=== PATIENT | female | born 1995 | race Caucasian/White ===

== ENCOUNTER 2019-09-11 15:52 | Inpatient (IN) | payer MEDICAID, OTHER ==
[~2019-09-11] VITALS: Ht 172.7 cm; Wt 74.1 kg
[2019-09-11 17:33] LABS: BASOPHILS % (AUTO) 1.8 % (0.0-2.0); EOSINOPHILS % (AUTO) 4.2 % (1.0-6.0); HEMATOCRIT 40.5 % (36-46); HEMOGLOBIN 13.5 g/dL (12.0-16.0); LYMPHOCYTES # (AUTO) 1.6 K/uL (1.0-4.8); MEAN CORPUSCULAR HEMOGLOBIN 28.6 pg (26.0-34.0); MEAN CORPUSCULAR HGB CONC 33.4 G/dL (31.0-37.0); MEAN CORPUSCULAR VOLUME 86 fL (80-100); MONOCYTES # (AUTO) 0.4 K/uL (0.1-1.0); MONOCYTES % (AUTO) 9.3 % (2.0-9.0); NEUTROPHILS # (AUTO) 1.7 K/uL (1.8-7.7); NEUTROPHILS % (AUTO) 43.7 % (40.0-70.0); PLATELET COUNT (AUTO) 262 K/uL (150-450); RED BLOOD CELL COUNT(AUTO) 4.72 MIL/uL (4.00-5.20)
[2019-09-11 17:49] LABS: ANION GAP 7 mmol/L (8-16); CALCIUM, TOTAL 8.9 mg/dL (8.8-10.5); CARBON DIOXIDE 29 mmol/L (22-29); CHLORIDE 105 mmol/L (98-107); CREATININE 1.12 mg/dL (0.60-1.30); GLOMERULAR FILTR. RATE CALC 60 mL/min (>60); GLUCOSE,RANDOM 96 mg/dL (70-110); POTASSIUM 4.2 mmol/L (3.5-5.1); SODIUM SERUM 141 mmol/L (136-145); UREA NITROGEN, BLOOD 15 mg/dL (7-18)
[2019-09-11 17:55] LABS: ALANINE AMINOTRANSFERASE 15 U/L (12-78); ALBUMIN 4.1 g/dL (3.4-5.0); ALKALINE PHOSPHATASE 86 U/L (46-116); ASPARTATE AMINOTRANSFERASE 11 U/L (15-37); BILIRUBIN,TOTAL 0.4 mg/dL (0.1-1.0); TOTAL PROTEIN, SERUM 7.7 g/dL (6.4-8.2)
[2019-09-11] MEDS ORDERED: CYANOCOBALAMIN 1,000 MCG/ML VIAL IM ONE (18:30)
[2019-09-11] MEDS ORDERED: MAG HYDROX/AL HYDROX/SIMETH ES 30 ML SUSPENSION UDCUP PO PRN (18:30)
[2019-09-11] MEDS ORDERED: LOPERAMIDE HCL 2 MG CAPSULE PO PRN (18:30)
[2019-09-11] MEDS ORDERED: LORazepam 2 MG TABLET PO PRN (18:30)
[2019-09-11] MEDS ORDERED: HydrOXYzine PAMOATE 50 MG CAPSULE PO PRN (18:30)
[2019-09-11] MEDS ORDERED: MAGNESIUM HYDROXIDE SUSPENSION 30 ML UDCUP PO PRN (18:30)
[2019-09-11] MEDS ORDERED: GuaiFENesin/D-METHORPHAN [SUGAR-FREE] 200-20MG/10 ML SYRUP UDCUP PO PRN (18:30)
[2019-09-11] MEDS ORDERED: TUBERCULIN, PURIFIED PROTEIN DERIVATIVE 5 TU/0.1 ML SYRINGE ID ONE (18:30)
[2019-09-11] MEDS ORDERED: ACETAMINOPHEN 325 MG TABLET PO PRN (18:30)
[2019-09-11] MEDS ORDERED: PROMETHAZINE HCL 25 MG TABLET PO PRN ×2 (18:30)
[2019-09-11] MEDS ORDERED: ZOLPIDEM TARTRATE 10 MG TABLET PO PRN (18:30)
[2019-09-11] MEDS ORDERED: QUEtiapine FUMARATE 100 MG TABLET PO PRN (18:30)
[2019-09-11] MEDS ORDERED: LORazepam 1 MG TABLET PO ONE (19:00)
[2019-09-11 19:07] LABS: HCG,QUANTITATIVE < 1 mIU/mL (0-6)
[2019-09-11] MEDS: THIAMINE HCL 100 MG TABLET PO SCH (21:17)
[2019-09-11] MEDS: OLANZapine 5 MG RAPDIS TABLET PO SCH (21:17)
[2019-09-11 22:07] LABS: AMPHET/METH SCREEN,URINE NEGATIVE (NEGATIVE); BARBITURATE SCREEN, URINE NEGATIVE (NEGATIVE); BENZODIAZEPINES SCREEN,URINE NEGATIVE (NEGATIVE); CANNABINOID SCREEN,URINE NEGATIVE (NEGATIVE); COCAINE SCREEN,URINE POSITIVE (NEGATIVE); METHADONE SCREEN, URINE NEGATIVE (NEGATIVE); OPIATE SCREEN,URINE NEGATIVE (NEGATIVE)
[2019-09-11 22:12] LABS: PHENCYCLIDINE SCREEN,URINE NEGATIVE (NEGATIVE)
[2019-09-12] VITALS (10 sets, daily range): BP systolic 100–130; BP diastolic 57–78
[2019-09-12] MEDS ORDERED: LORazepam 2 MG TABLET PO PRN (07:00)
[2019-09-12 07:32] LABS: ALANINE AMINOTRANSFERASE 19 U/L (12-78); ALBUMIN 3.5 g/dL (3.4-5.0); ALKALINE PHOSPHATASE 68 U/L (46-116); ANION GAP 10 mmol/L (8-16); ASPARTATE AMINOTRANSFERASE 11 U/L (15-37); BILIRUBIN,TOTAL 0.6 mg/dL (0.1-1.0); CALCIUM, TOTAL 8.6 mg/dL (8.8-10.5); CARBON DIOXIDE 25 mmol/L (22-29); CHLORIDE 105 mmol/L (98-107); CHOL/HDL RATIO 2.6 (3.9-5.7); CHOLESTEROL 123 mg/dL (131-200); FREE T4 (FREE THYROXINE) 0.94 ng/dL (0.76-1.46); GLOMERULAR FILTR. RATE CALC > 60 mL/min (>60); GLUCOSE,RANDOM 99 mg/dL (70-110); HDL CHOLESTEROL 48 mg/dL (40-60); LDL CHOL (CALC.) 60 mg/dL (0-130); POTASSIUM 3.6 mmol/L (3.5-5.1); SODIUM SERUM 140 mmol/L (136-145); THYROID STIMULATING HORMONE 3.19 uIU/mL (0.36-3.74); TOTAL PROTEIN, SERUM 6.8 g/dL (6.4-8.2); TRIGLYCERIDES 75 mg/dL (15-150); UREA NITROGEN, BLOOD 16 mg/dL (7-18)
[2019-09-12 08:29] LABS: BASOPHILS % (AUTO) 1.4 % (0.0-2.0); EOSINOPHILS % (AUTO) 6.4 % (1.0-6.0); HEMATOCRIT 38.5 % (36-46); HEMOGLOBIN 12.7 g/dL (12.0-16.0); LYMPHOCYTES # (AUTO) 1.8 K/uL (1.0-4.8); MEAN CORPUSCULAR HEMOGLOBIN 28.3 pg (26.0-34.0); MEAN CORPUSCULAR HGB CONC 32.9 G/dL (31.0-37.0); MEAN CORPUSCULAR VOLUME 86 fL (80-100); MONOCYTES # (AUTO) 0.3 K/uL (0.1-1.0); MONOCYTES % (AUTO) 11.5 % (2.0-9.0); NEUTROPHILS # (AUTO) 0.6 K/uL (1.8-7.7); NEUTROPHILS % (AUTO) 20.7 % (40.0-70.0); PLATELET COUNT (AUTO) 200 K/uL (150-450); RED BLOOD CELL COUNT(AUTO) 4.47 MIL/uL (4.00-5.20); RED CELL DISTRIBUTION WIDTH 16.3 % (11.5-14.5)
[2019-09-12] MEDS: FLUoxetine HCL 20 MG CAPSULE PO SCH (08:36)
[2019-09-12] MEDS: NALTREXONE HCL 50 MG TABLET PO SCH (08:37)
[2019-09-12] MEDS: THIAMINE HCL 100 MG TABLET PO SCH ×2 (08:37→16:29)
[2019-09-12] MEDS: MULTIVITAMINS WITH MINERALS, THERAPEUTIC TABLET PO SCH (08:37)
[2019-09-12] MEDS: LORazepam 2 MG TABLET PO SCH ×4 (08:37→20:20)
[2019-09-12] MEDS: FOLIC ACID 1 MG TABLET PO SCH (08:37)
[2019-09-12] MEDS ORDERED: OLANZapine 5 MG RAPDIS TABLET PO PRN (18:30)
[2019-09-12] MEDS: OLANZapine 5 MG RAPDIS TABLET PO SCH (20:20)
[2019-09-13 01:45] VITALS: BP 106/59
[2019-09-13] MEDS ORDERED: INFLUENZA VIRUS VACCINE QVS 2019-20 (3YR+)/PF 60 MCG/0.5 ML SYRINGE IM ONE (05:15)
[2019-09-13 05:45] VITALS: BP 99/56
[2019-09-13 08:42] VITALS: BP 122/68
[2019-09-13 08:43] VITALS: BP 122/68
[2019-09-13] MEDS: FLUoxetine HCL 20 MG CAPSULE PO SCH (10:05)
[2019-09-13] MEDS: THIAMINE HCL 100 MG TABLET PO SCH ×2 (10:05→16:29)
[2019-09-13] MEDS: MULTIVITAMINS WITH MINERALS, THERAPEUTIC TABLET PO SCH (10:05)
[2019-09-13] MEDS: LORazepam 2 MG TABLET PO SCH ×4 (10:06→20:39)
[2019-09-13] MEDS: FOLIC ACID 1 MG TABLET PO SCH (10:06)
[2019-09-13] MEDS: NALTREXONE HCL 50 MG TABLET PO SCH (10:06)
[2019-09-13 16:00] VITALS: BP 108/64
[2019-09-13] MEDS ORDERED: OLANZapine 10 MG RAPDIS TABLET PO SCH (21:00)
[2019-09-14 06:10] VITALS: BP 97/62
[2019-09-14 06:15] VITALS: BP 97/62
[2019-09-14] MEDS ORDERED: LORazepam 1 MG TABLET PO PRN (07:00)
[2019-09-14 08:00] VITALS: BP 90/64
[2019-09-14] MEDS: THIAMINE HCL 100 MG TABLET PO SCH ×2 (09:35→16:35)
[2019-09-14] MEDS: FOLIC ACID 1 MG TABLET PO SCH (09:35)
[2019-09-14] MEDS: MULTIVITAMINS WITH MINERALS, THERAPEUTIC TABLET PO SCH (09:35)
[2019-09-14] MEDS: NALTREXONE HCL 50 MG TABLET PO SCH (09:35)
[2019-09-14] MEDS: FLUoxetine HCL 20 MG CAPSULE PO SCH (09:35)
[2019-09-14] MEDS: LORazepam 1 MG TABLET PO SCH ×3 (09:39→16:35)
[2019-09-14] MEDS ORDERED: FLUO-191 PO (15:38)
[2019-09-14] MEDS ORDERED: OLAN10TA22 PO (15:38)
[2019-09-14] MEDS ORDERED: NALT50TA PO (15:38)
[2019-09-14] MEDS: NICOTINE 21 MG/24 HOUR PATCH TD SCH (17:06)
[2019-09-14 17:17] VITALS: BP 121/64
[2019-09-14 17:18] VITALS: BP 121/64
[2019-09-14] MEDS ORDERED: LOPERAMIDE HCL 2 MG CAPSULE PO PRN (18:30)
[2019-09-15 06:23] VITALS: BP 102/57
[2019-09-15] MEDS ORDERED: LORazepam 1 MG TABLET PO PRN (07:00)
[2019-09-15 08:24] VITALS: BP 106/73
[2019-09-15] MEDS: FOLIC ACID 1 MG TABLET PO SCH (09:38)
[2019-09-15] MEDS: FLUoxetine HCL 20 MG CAPSULE PO SCH (09:38)
[2019-09-15] MEDS: MULTIVITAMINS WITH MINERALS, THERAPEUTIC TABLET PO SCH (09:38)
[2019-09-15] MEDS: NALTREXONE HCL 50 MG TABLET PO SCH (09:38)
[2019-09-15] MEDS: THIAMINE HCL 100 MG TABLET PO SCH (09:38)
[2019-09-15] MEDS: NICOTINE 21 MG/24 HOUR PATCH TD SCH (09:46)
== END 2019-09-15 12:45 | disposition home or self-care (01) | DRG 753 ==
LOC: EMS 15:54 → 3EI 09-12 01:04
PROVIDERS: ADMIT Psychiatry & Neurology Psychiatry; ATTEND Psychiatry & Neurology Psychiatry
DX: F31.9 Bipolar disorder, unspecified (principal); D72.819 Decreased white blood cell count, unspecified; F41.9 Anxiety disorder, unspecified; F14.10 Cocaine abuse, uncomplicated; J45.909 Unspecified asthma, uncomplicated; F12.90 Cannabis use, unspecified, uncomplicated; Z81.8 Family history of other mental and behavioral disorders; Z87.09 Personal history of other diseases of the respiratory system; Z82.5 Family history of asthma and other chronic lower respiratory diseases; Z87.891 Personal history of nicotine dependence
CPT/HCPCS: 83036; 84439; 84443; 86592; 90686; G0480; J3420